=== PATIENT | male | born 1960 | race Caucasian/White ===

== ENCOUNTER → 2023-10-17 | Outpatient (REF) | LOC: M PLAIMG 12:05 | PROVIDERS: ATTEND Internal Medicine | DX: M25.562 Pain in left knee (principal); Z96.652 Presence of left artificial knee joint ==

== ENCOUNTER 2024-09-19 10:25 | Day surgery (SDC) | payer BC, MEDICARE ==
[~2024-09-19] VITALS: Ht 165.1 cm; Wt 107.0 kg
[2024-09-19] MEDS: BSS IRRIG/VANCO(10MG)/TOBRA(5MG)/EPINEPH(1:1000-0.5CC)500ML BAG-ORONLY As Ordered ONE (09:34)
[~2024-09-19 10:25] MED LIST: ACET650T61 PO; GABA-1490 PO; MIDAZOLAM INJ 2MG/2ML VIAL As Ordered ONE; PHENYLEPHRINE 10% OPHTH SOL 5ML OD PRN; fentaNYL 100 MCG/2 ML INJECTION As Ordered ONE
[2024-09-19] MEDS: PHENYLEPHRINE 2.5% OPHTH SOL 2ML OD SCH (11:45)
[2024-09-19] MEDS: TROPICAMIDE 1% OPHTH SOLN 15ML OD SCH (11:45)
[2024-09-19] MEDS: OFLOXACIN 0.3 % (OCUFLOX) OPTH SOL 5ML OD ONE (11:45)
[2024-09-19] MEDS: LIDOCAINE 3.5 % 1ML OPHTH TOPICAL GEL OU ONE (11:45)
[2024-09-19] MEDS: CYCLOPENTOLATE 1% OPHTH SOLN 2ML BTL OD SCH (11:45)
[2024-09-19] MEDS: LIDOCAINE 1% SDV 5ML VIAL As Ordered ONE (13:54)
[2024-09-19] MEDS: CEFUROXIME 1MG/0.1ML INTRACAMERAL INJ As Ordered ONE (13:56)
[2024-09-19 14:08] VITALS: BP 119/83; TEMP 98.5; O2SAT 95
== END 2024-09-19 14:27 | disposition home or self-care (01) ==
LOC: M SDC 10:25
PROVIDERS: ATTEND Ophthalmology
DX: H25.11 Age-related nuclear cataract, right eye (principal); G47.30 Sleep apnea, unspecified; Z79.899 Other long term (current) drug therapy; Z88.7 Allergy status to serum and vaccine; Z91.030 Bee allergy status; Z90.89 Acquired absence of other organs
CPT/HCPCS: 66984; J0697; J2250; J3010; V2632

== ENCOUNTER 2024-10-24 06:43 | Day surgery (SDC) | payer MEDICARE, BC ==
[~2024-10-24] VITALS: Ht 165.1 cm; Wt 107.7 kg
[~2024-10-24 06:43] MED LIST changes: -MIDAZOLAM INJ 2MG/2ML VIAL As Ordered ONE; -PHENYLEPHRINE 10% OPHTH SOL 5ML OD PRN; +PHENYLEPHRINE 10% OPHTH SOL 5ML OS PRN; -fentaNYL 100 MCG/2 ML INJECTION As Ordered ONE
[2024-10-24] MEDS: LIDOCAINE 3.5 % 1ML OPHTH TOPICAL GEL OU ONE (07:10)
[2024-10-24] MEDS: OFLOXACIN 0.3 % (OCUFLOX) OPTH SOL 5ML OS ONE (07:10)
[2024-10-24] MEDS: PHENYLEPHRINE 2.5% OPHTH SOL 2ML OS SCH (07:11)
[2024-10-24] MEDS: TROPICAMIDE 1% OPHTH SOLN 15ML OS SCH (07:11)
[2024-10-24] MEDS: CYCLOPENTOLATE 1% OPHTH SOLN 2ML BTL OS SCH (07:11)
[2024-10-24] MEDS ORDERED: fentaNYL 100 MCG/2 ML INJECTION As Ordered ONE (08:09)
[2024-10-24] MEDS ORDERED: MIDAZOLAM INJ 2MG/2ML VIAL As Ordered ONE (08:09)
[2024-10-24] MEDS: LIDOCAINE 1% SDV 5ML VIAL As Ordered ONE (08:31)
[2024-10-24] MEDS: BSS IRRIG/VANCO(10MG)/TOBRA(5MG)/EPINEPH(1:1000-0.5CC)500ML BAG-ORONLY As Ordered ONE (08:31)
[2024-10-24] MEDS: CEFUROXIME 1MG/0.1ML INTRACAMERAL INJ As Ordered ONE (08:31)
[2024-10-24 08:45] VITALS: BP 115/67; TEMP 97.2; O2SAT 96
== END 2024-10-24 09:11 | disposition home or self-care (01) ==
LOC: M SDC 06:43
PROVIDERS: ATTEND Ophthalmology
DX: H25.12 Age-related nuclear cataract, left eye (principal); G47.33 Obstructive sleep apnea (adult) (pediatric); M79.7 Fibromyalgia; Z79.899 Other long term (current) drug therapy; Z91.030 Bee allergy status; Z88.7 Allergy status to serum and vaccine; Z90.89 Acquired absence of other organs
CPT/HCPCS: 66984; J0697; J2250; J3010; V2632